=== PATIENT | female | born 1980 | race Caucasian/White ===

== ENCOUNTER 2017-10-11 08:04 | Outpatient (CLI) | payer OTHER ==
--- NOTE | 2017-10-11 11:54 | MRI ---
MRI CERVICAL SPINE: HISTORY: Hand tingling, M54.12. FINDINGS: Multiplanar, multisequence noncontrast-enhanced MRI images of the cervical spine were obtained. The spinal cord is unremarkable. No evidence of cord masses or lesions seen. C1-2, C2-3, C3-4: Unremarkable. C4-5: There is a mild disk desiccation at this level. No significant degree of central stenosis is seen. The neural foramen are patent. C5-6: Unremarkable. C6-7 and C7-T1: Unremarkable. IMPRESSION: Minimal C4-5 disk desiccation. No significant degree of central or neural foraminal narrowing is see n. POS: OFF
== END 2017-10-11 08:05 | disposition home or self-care (01) ==
LOC: BICMRI 08:04
PROVIDERS: ATTEND Internal Medicine
DX: M50.10 Cervical disc disorder with radiculopathy, unspecified cervical region (principal)
CPT/HCPCS: 72141

== ENCOUNTER 2018-02-13 07:38 | Outpatient (CLI) | payer SELFPAY, OTHER ==
--- NOTE | 2018-02-13 09:33 | MRI ---
MRI LUMBAR SPINE WITHOUT COTNRAST: Multiplanar, multisequential imaging of the lumbar spine obtained. INDICATION: Lumbar radiculopathy. Chronic back pain. COMPARISON: No comparison study. FINDINGS: Lumbar vertebrae maintain normal height and alignment. Disk spaces are maintained. At L1-2, no disk bulge or protrusion. No central canal or foraminal stenosis. At L2-3, no significant disk bulge. Mild facet arthrosis. No central canal or foraminal stenosis. At L3-4, mild disk bulge abuts and mildly flattens the anterior thecal sac. Mild facet arthrosis. N o significant central canal or foraminal stenosis. At L4-5, there is evidence of an annular fissure. There is a small central disk protrusion which ind ents the anterior thecal sac. Mild facet arthrosis and hypertrophy. Mild central canal stenosis. At L5-S1, mild diffuse bulge centrally. This abuts the anterior thecal sac. Mild facet arthrosis. No central canal or foraminal stenosis. IMPRESSION: 1. Small central disk protrusion at L4-5 as described above. 2. Mild diffuse disk bulge at L5-S1 as described. POS: OFF
--- NOTE | 2018-02-13 09:49 | RAD ---
LEFT HIP 2 VIEWS: Date: 02/13/18 HISTORY: Left hip pain. FINDINGS/IMPRESSION: No fracture, dislocation, or bony destruction is seen. POS: [facility]
--- NOTE | 2018-02-13 09:50 | RAD ---
RIGHT HIP 2 VIEWS: Date: 02/13/18 HISTORY: Right hip pain. FINDINGS/IMPRESSION: No fracture, dislocation, or bony destruction is identified. POS: JAMES
== END 2018-02-13 07:39 | disposition home or self-care (01) ==
LOC: MRI 07:38
PROVIDERS: ATTEND Internal Medicine
DX: M51.16 Intervertebral disc disorders with radiculopathy, lumbar region (principal); M25.552 Pain in left hip
CPT/HCPCS: 72148

== ENCOUNTER 2018-02-17 06:41 | Outpatient (CLI) | payer OTHER | END 2018-02-17 06:42 | disposition home or self-care (01) | LOC: BICULT 06:41 | PROVIDERS: ATTEND Family Medicine | DX: R22.31 Localized swelling, mass and lump, right upper limb (principal); M89.9 Disorder of bone, unspecified | CPT/HCPCS: 76999 ==

== ENCOUNTER 2018-04-22 07:03 | Emergency (ER) | payer OTHER ==
[2018-04-22 07:26] LABS: #Basophils 0.1 thou/uL (0.0-0.2); #Eosinphils 0.3 thou/uL (0.0-0.7); #Lymphocytes 4.1 thou/uL (1.20-3.40); #Monocytes 0.8 thou/uL (0.11-0.59); %Basophils 0.6 % (0.0-1.0); %Eosinophils 2.2 % (0.0-10.0); %Lymphocytes 31.1 % (21.0-51.0); %Neutrophils 60.1 % (42.0-75.0); Hemoglobin 15.9 g/dL (12.0-16.0); Mean Corpuscular HGB CONC 33.1 g/dL (32.0-36.0); Mean Corpuscular Hemoglobin 31.6 pg (27.0-31.0); Mean Corpuscular Volume 95.6 fl (81.0-99.0); Mean Platelet Volume 7.7 fL (7.4-10.4); Platelet Count 211 thou/uL (130-400); Red Blood Cell (RBC) Count 5.04 mill/uL (4.20-5.40); White Blood Cell (WBC) Count 13.3 thou/uL (4.8-10.8)
[2018-04-22 07:51] LABS: ALT (SGPT) 20 U/L (8-55); AST (SGOT) 11 U/L (5-34); Albumin 3.9 g/dL (3.5-5.0); Alkaline Phosphatase 83 U/L (40-150); Anion Gap 13 mmol/L (10-20); BUN (Urea Nitrogen) 16 mg/dL (7.0-18.7); Bilirubin, Total 0.3 mg/dL (0.2-1.2); Calc. Creatinine Clearance 0 mL/min (70-130); Calcium 9.3 mg/dL (7.8-10.44); Carbon Dioxide 24 mmol/L (22-29); Chloride 104 mmol/L (98-107); Estimated GFR-MDRD 89; Glucose 98 mg/dL (70-105); Potassium 4.3 mmol/L (3.5-5.1); Protein, Total 6.9 g/dL (6.0-8.3); Sodium 137 mmol/L (136-145)
[2018-04-22 07:54] LABS: Troponin I Less than 0.010 ng/mL (< 0.028)
--- NOTE | 2018-04-22 09:02 | RAD ---
AP VIEW OF THE CHEST: INDICATION: Chest pain. COMPARISON: Prior exam dated 10/16/16. FINDINGS: No consolidation, pleural effusion, or pneumothorax is evident. Trachea is midline. Heart size is n ormal appearing. No acute osseous abnormality is demonstrated. IMPRESSION: No acute cardiopulmonary abnormality. POS: [facility]
[2018-04-22] MEDS ORDERED: Nitroglycerin 0.4 MG TAB (25 Tab Bottle) ONE (09:15)
[2018-04-22 11:17] LABS: Troponin I Less than 0.010 ng/mL (< 0.028)
== END 2018-04-22 11:34 | disposition home or self-care (01) ==
LOC: ERS 07:03
DX: R07.2 Precordial pain (principal); E66.9 Obesity, unspecified; M41.9 Scoliosis, unspecified; F41.9 Anxiety disorder, unspecified; F32.9 Major depressive disorder, single episode, unspecified; F17.210 Nicotine dependence, cigarettes, uncomplicated; Z79.899 Other long term (current) drug therapy
CPT/HCPCS: 36415; 71045; 80053; 82553; 83690; 83880; 84484; 85025; 85379; 93005; 96360

== ENCOUNTER 2018-06-09 10:48 | Outpatient (CLI) | payer OTHER | END 2018-06-09 10:49 | disposition home or self-care (01) | LOC: DTY/OP 10:48 | PROVIDERS: ATTEND Specialist | DX: Z01.818 Encounter for other preprocedural examination (principal); E66.01 Morbid (severe) obesity due to excess calories | CPT/HCPCS: 97802 ==

== ENCOUNTER 2018-07-11 13:00 | Inpatient (IN) | payer OTHER ==
--- NOTE | 2018-07-12 13:42 | ADD-HP ---
ADDENDUM HISTORY OF PRESENT ILLNESS: Tena Barry is being evaluated for laparoscopic sleeve gastrectomy. S cammie is morbidly obese. Starting weight 294 pounds, 53 BMI; losing to 281, 51 BMI, but then today in t he office to 294 of 53 BMI. She was planned next week for laparoscopic sleeve gastrectomy. She is s een by psychologist felt to be a good candidate. She has attended our bariatric weight loss seminar. She is committed to long-term followup and postoperative support groups to ensure maximal success. Comorbidities include elevated cholesterol, lipids, obesity, arthralgias, back pain, depression. PAST MEDICAL HISTORY: Scoliosis, menometrorrhagia, dysmenorrhea, normal endometrial biopsy, status p ost hysterectomy, bilateral salpingectomy Dr. Ellis Metcalf, , left clubfoot repair. Scolios is, chronic lumbar pain, anxiety, obesity, elevated cholesterol and triglycerides, lower back pain. TOBACCO: None. ALCOHOL: Rarely. ALLERGIES: CECLOR, hives allergy. FAMILY HISTORY: Noncontributory. REVIEW OF SYSTEMS: Ten-point noncontributory. PHYSICAL EXAMINATION: VITAL SIGNS: 5 feet 2 inches, 294 pounds, 53 BMI. HEAD, EYES, EARS, NOSE, AND THROAT: Unremarkable. LUNGS: Clear to auscultation. CARDIAC: Regular rate and rhythm without murmur or gallop. ABDOMEN: Soft, obese, nontender. EXTREMITIES: Unremarkable. No ankle edema, palpable pedal pulses. No lymphadenopathy in neck, axil la or groins. NEUROLOGICAL: Cranial nerves intact. No neurological deficits. ASSESSMENT: Morbid obesity, 294 pounds, 53 BMI. PLAN: Laparoscopic sleeve gastrectomy. Risk of infection, bleeding, reoperation etc, are discussed. Questions answered.
[2018-07-16] MEDS ORDERED: Levofloxacin 500 mg/D5W 100 ml Premix Bag ONE (06:17)
[2018-07-16] MEDS ORDERED: Scopolamine 1.5 mg/72 hour Patch ONE (06:18)
[2018-07-16] MEDS ORDERED: Ketorolac Tromethamine 30 MG/ML VIAL ONE (06:18)
[2018-07-16] MEDS ORDERED: Heparin 5,000 UNITS/ML VIAL ONE (06:18)
[2018-07-16] MEDS ORDERED: Bupivacaine/Epinephrine 0.25% 30 ML VIAL ONE (06:55)
[2018-07-16] MEDS ORDERED: Fentanyl 100 MCG/2 ML VIAL ONE ×3 (07:02→10:46)
[2018-07-16] MEDS ORDERED: Dexmedetomidine 200 MCG/2 ML VIAL ONE (07:03)
[2018-07-16] MEDS ORDERED: Midazolam HCl 2 mg/2 ml Vial ONE (07:17)
[2018-07-16] MEDS ORDERED: SUGAMMADEX SODIUM 500 MG/5 ML VIAL ONE (08:04)
[2018-07-16] MEDS ORDERED: Promethazine HCl 25 MG/ML VIAL IM PRN (09:10)
[2018-07-16] MEDS ORDERED: Promethazine HCl 25 MG/ML VIAL SLOW IVP PRN (09:10)
[2018-07-16] MEDS ORDERED: Ondansetron HCl/PF 4 MG/2 ML Vial IVP PRN (09:10)
[2018-07-16] MEDS ORDERED: diphenhydrAMINE 50 MG/ML VIAL IVP PRN (09:39)
[2018-07-16] MEDS ORDERED: hydrALAZINE 20 MG/ML VIAL SLOW IVP PRN (09:39)
[2018-07-16] MEDS ORDERED: Acetaminophen 650 MG/20.3 ML UDCUP PO PRN (09:39)
[2018-07-16] MEDS ORDERED: Ondansetron ORAL SOLN. 4 MG/5 ML UDCUP PO PRN ×2 (09:43)
[2018-07-16] MEDS ORDERED: Ondansetron ODT 8 MG TAB SL PRN (09:43)
[2018-07-16] MEDS ORDERED: Ondansetron ODT 8 MG TAB PO PRN (09:43)
[2018-07-16] MEDS: Ketorolac Tromethamine 30 MG/ML VIAL IVP SCH ×2 (12:01→17:24)
[2018-07-16] MEDS: Morphine 4 MG/ML VIAL SLOW IVP PRN ×4 (12:01→18:47)
[2018-07-16] MEDS: Acetaminophen 1,000 MG in Premix Bag 1 BAG IVPB SCH ×2 (12:02→17:24)
[2018-07-16 13:39] VITALS: BMI 54.1
--- NOTE | 2018-07-16 13:47 | OP ---
DATE OF PROCEDURE: 07/16/2018 PREOPERATIVE DIAGNOSES: 1. Morbid obesity. 2. Elevated cholesterol. 3. Arthralgias. 4. Depression. 5. 53 BMI. SURGEON: Dr. Pastor Ramirez ANESTHESIA: General. Local 0.25% Marcaine with epinephrine, 60 mL. FINDINGS: Fatty liver, though not too severe, was malleable to allow the procedure. Difficult proc edure due to morbid obesity, 53 BMI. PROCEDURE: The patient was taken to the operating room where under general anesthesia in supine posi tion, abdomen was prepped with ChloraPrep, draped in routine fashion. Local anesthetic infiltrated i nto the skin and subcutaneous tissue about all port sites. Supraumbilical midline incision made. Pn eumoperitoneum to 15 mm obtained with the Veress needle, replacing it with a 5 port, video laparoscop e inserted. Bilateral far laterals subcostal incision made and 5 ports placed. Bilateral midclavicu lar upper abdominal incision made and a 15 mm port placed on the left and a 12 mm port placed on the right. Subxiphoid incision made and a Kranthi liver retractor placed under laparoscopic visualizat ion retracting the left lobe of the liver. Gastrocolic ligament taken down adjacent to greater curva ture of the stomach beginning distally, dissection carried up towards the angle of His. Angle of His dissected free. Posterior attachments taken down. Dissection carried out distally to within 4 cm o f the pylorus. A 36 Greenlandic bougie placed per Anesthesia and laparoscopically appreciated and directe d towards the pylorus. Sleeve gastrectomy undertaken with a green load, gold load and blue load fire s of the stapler, taking care to not encroach on the incisura. This was carried up completely dividi ng the stomach, completing the sleeve gastrectomy, removing the stomach through the 15 mm port and cl osing this defect with a 0 Vicryl GraNee needle. Endoscopy performed, placed the endoscope per os un sharad direct visualization down the esophagus throughout the stomach through the pylorus and the duoden um. Scope passed easily. There were no restrictions. Scope withdrawn noting good hemostasis. The esophagus looked normal. No other abnormalities noted. The staple line on the sleeve gastrectomy ag ain inspected and clips placed where necessary. There was good hemostasis. Spleen was not injured. As sponge and needle counts were correct and the specimen removed, all instruments removed and all s kin incisions irrigated and approximated with continuous subcuticular suture of 4-0 Monocryl and Derm aGlue applied.
[2018-07-16] MEDS: 1/2 NS w/KCL 20 mEq 1,000 ML IV SCH ×2 (14:55→23:20)
[2018-07-16] MEDS: Ondansetron HCl/PF 4 MG/2 ML Vial IVP PRN (17:24)
[2018-07-16] MEDS ORDERED: traZODone HCl 50 MG TAB PO SCH (21:00)
[2018-07-16] MEDS ORDERED: Enoxaparin Sodium 40 MG/0.4 ML SYRINGE SC SCH (21:00)
[2018-07-17] MEDS: Ketorolac Tromethamine 30 MG/ML VIAL IVP SCH ×3 (00:42→11:39)
[2018-07-17] MEDS: Acetaminophen 1,000 MG in Premix Bag 1 BAG IVPB SCH ×2 (00:42→05:53)
[2018-07-17] MEDS: Morphine 4 MG/ML VIAL SLOW IVP PRN ×3 (00:46→08:25)
[2018-07-17] MEDS: 1/2 NS w/KCL 20 mEq 1,000 ML IV SCH ×2 (02:38→10:49)
[2018-07-17 05:03] LABS: #Lymphocytes 2.2 thou/uL (1.20-3.40); #Monocytes 0.3 thou/uL (0.11-0.59); #Neutrophils 5.8 thou/uL (1.40-6.50); %Basophils 0.4 % (0.0-1.0); %Eosinophils 0.5 % (0.0-10.0); %Lymphocytes 25.9 % (21.0-51.0); %Neutrophils 69.2 % (42.0-75.0); Hemoglobin 12.7 g/dL (12.0-16.0); Mean Corpuscular HGB CONC 34.9 g/dL (32.0-36.0); Mean Corpuscular Hemoglobin 33.6 pg (27.0-31.0); Mean Corpuscular Volume 96.3 fL (78.0-98.0); Mean Platelet Volume 8.8 fL (7.4-10.4); Platelet Count 178 thou/uL (130-400); RBC Distribution Width 12.1 % (11.5-14.5); Red Blood Cell (RBC) Count 3.79 mill/uL (4.20-5.40); White Blood Cell (WBC) Count 8.4 thou/uL (4.8-10.8)
[2018-07-17 05:25] LABS: Anion Gap 12 mmol/L (10-20); BUN (Urea Nitrogen) 6 mg/dL (7.0-18.7); Calc. Creatinine Clearance 237 mL/min (70-130); Calcium 8.3 mg/dL (7.8-10.44); Carbon Dioxide 23 mmol/L (22-29); Chloride 108 mmol/L (98-107); Estimated GFR-MDRD Greater than 90; Glucose 100 mg/dL (70-105); Potassium 3.7 mmol/L (3.5-5.1); Sodium 139 mmol/L (136-145)
[2018-07-17] MEDS: Ondansetron HCl/PF 4 MG/2 ML Vial IVP PRN (07:39)
[2018-07-17] MEDS ORDERED: Diazepam 5 MG TAB PO SCH (09:00)
[2018-07-17] MEDS ORDERED: Pantoprazole 40 MG VIAL IVP SCH (09:00)
[2018-07-17 11:38] VITALS: BP 121/73; TEMP 98.1
[2018-07-17] MEDS ORDERED: Hydrocodone-Acetamin 15 ML UDCUP PO PRN (12:00)
--- NOTE | 2018-07-18 00:55 | PRG ---
DATE OF SERVICE: 07/17/2018 SUBJECTIVE: Ms. Barry is doing well today. Her CBC and basic metabolic profile are normal. OBJECTIVE: VITAL SIGNS: Stable. Heart rate is normal. Respiratory rate is normal. LUNGS: Clear to auscultation. CARDIAC: Regular rate and rhythm without murmur or gallop. ABDOMEN: Soft. Surgical wounds look good. ASSESSMENT AND PLAN: The patient has complained expected postoperative pain around the trocar sites. Overall, she is doing well. Plan is discharge home with adherence to the postoperative laparoscopi c sleeve gastrectomy. Diet advancement. Lortab 7.5/325 Elixir for pain as needed . Follow up in my office in 1-2 weeks per appointment. Resume home medications.
--- NOTE | 2018-07-18 03:31 | DIS ---
DATE OF ADMISSION: 07/16/2018 DATE OF DISCHARGE: 07/17/2018 DISCHARGE DIAGNOSIS: Morbid obesity. PROCEDURES THIS HOSPITALIZATION: Laparoscopic sleeve gastrectomy, 36 Turkish bougie, staple line with in 4 cm of the pylorus, completion upper endoscopy. HISTORY OF PRESENT ILLNESS: A 38-year-old female, morbidly obese, has attended our bariatric seminar , seen her dietitian, psychologist felt to be a good candidate for bariatric surgery, undergoing the operation as described. Postoperatively, doing well and discharged home to resume her home medicatio ns as well as Lortab Elixir 7.5/325 as needed for pain, given 15 mL q.i.d. p.r.n. pain. Follow up in my office in 1-2 weeks. Encourage activity, ambulation, adherence to dietary advancement per bariat margret sleeve gastrectomy protocol, bariatric liquids for 2 weeks, pureed diet and then soft diet. Follow up in my office in one week.
== END 2018-07-17 13:08 | disposition home or self-care (01) | DRG 621 ==
LOC: SURG A 07-16 05:50
PROVIDERS: ADMIT Specialist; ATTEND Specialist
PROC: 0DB64Z3 Excision of Stomach, Percutaneous Endoscopic Approach, Vertical (ICD-10-PCS; principal; 2018-07-16)
PROC: 0DJ08ZZ Inspection of Upper Intestinal Tract, Via Natural or Artificial Opening Endoscopic (ICD-10-PCS; 2018-07-16)
DX: E66.01 Morbid (severe) obesity due to excess calories (principal); Z68.43 Body mass index [BMI] 50.0-59.9, adult; M25.50 Pain in unspecified joint; F32.9 Major depressive disorder, single episode, unspecified; M41.9 Scoliosis, unspecified; N92.1 Excessive and frequent menstruation with irregular cycle; Z90.710 Acquired absence of both cervix and uterus; F41.9 Anxiety disorder, unspecified; E78.2 Mixed hyperlipidemia; K76.0 Fatty (change of) liver, not elsewhere classified
CPT/HCPCS: 36415; 80048; 85025; 88307; 88312; C9113; J0131; J1644; J1650; J1885; J1956; J2250; J2270; J2405; J3010

== ENCOUNTER 2018-07-18 09:52 | Outpatient (CLI) | payer OTHER ==
--- NOTE | 2018-07-18 14:07 | CT ---
CT ABDOMEN AND PELVIS WITH CONTRAST: HISTORY: Status post recent gastric sleeve procedure with nausea, severe abdominal pain, and fever. COMPARISON: None. TECHNIQUE: Multiple contiguous axial images were obtained in a CT of the abdomen and pelvis with contrast. Cont rast was administered p.o. Coronal reformats were performed. FINDINGS: There is free air in the abdomen from recent surgery. Post surgical changes are seen in the stomach from previous gastric sleeve procedure. There is diffuse fatty infiltration of the liver. The gallb ladder, kidneys, adrenal glands, spleen, and pancreas are unremarkable. No free fluid is seen in the abdomen or pelvis. The large and small bowel are unremarkable. The pat ient is status post hysterectomy. No abdominal or pelvic lymphadenopathy is seen. The osseous structures and abdominal wall soft tissues are unremarkable. Atelectasis is seen in the lung bases. IMPRESSION: 1. Expected post surgical changes, status post gastric sleeve procedure. 2. Fatty liver. 3. Bibasilar atelectasis. POS: [facility]
[2018-07-18] MEDS ORDERED: Iopamidol 370 76% 100 ML VIAL ONE (14:17)
== END 2018-07-18 09:53 | disposition home or self-care (01) ==
LOC: CT 09:52
PROVIDERS: ATTEND Specialist
DX: Z48.815 Encounter for surgical aftercare following surgery on the digestive system (principal); K76.0 Fatty (change of) liver, not elsewhere classified; J98.11 Atelectasis; Z98.84 Bariatric surgery status
CPT/HCPCS: 36415; 74177; 80048; 85025

== ENCOUNTER 2018-08-18 07:38 | Emergency (ER) | payer OTHER ==
[2018-08-18 08:36] LABS: Hemoglobin 15.9 g/dL (12.0-16.0); Mean Corpuscular HGB CONC 33.6 g/dL (32.0-36.0); Mean Corpuscular Hemoglobin 31.4 pg (27.0-31.0); Mean Corpuscular Volume 93.6 fL (78.0-98.0); Mean Platelet Volume 10.2 fL (7.4-10.4); Platelet Count 169 thou/uL (130-400); RBC Distribution Width 11.9 % (11.5-14.5); Red Blood Cell (RBC) Count 5.04 mill/uL (4.20-5.40); White Blood Cell (WBC) Count 6.9 thou/uL (4.8-10.8)
[2018-08-18 08:42] LABS: ALT (SGPT) 69 U/L (8-55); AST (SGOT) 49 U/L (5-34); Albumin 4.3 g/dL (3.5-5.0); Alkaline Phosphatase 77 U/L (40-150); Anion Gap 14 mmol/L (10-20); BUN (Urea Nitrogen) 8 mg/dL (7.0-18.7); Bilirubin, Total 0.5 mg/dL (0.2-1.2); Calc. Creatinine Clearance 0 mL/min (70-130); Calcium 9.5 mg/dL (7.8-10.44); Carbon Dioxide 27 mmol/L (22-29); Chloride 103 mmol/L (98-107); Estimated GFR-MDRD 85; Glucose 102 mg/dL (70-105); Lipase 18 U/L (8-78); Potassium 3.7 mmol/L (3.5-5.1); Protein, Total 7.3 g/dL (6.0-8.3); Sodium 140 mmol/L (136-145)
[2018-08-18 08:53] LABS: BHCG - Serum Negative (NEGATIVE); Pregs Control Background? CLEAR/WHITE (CLR/WHITE); Pregs Control Bar Appear? YES (CONTROL BAR)
[2018-08-18] MEDS ORDERED: Ondansetron HCl/PF 4 MG/2 ML Vial ONE (09:02)
[2018-08-18] MEDS ORDERED: Morphine 4 MG/ML VIAL ONE (09:02)
[2018-08-18 09:09] LABS: Eosinophils 1 % (0-10); Lymphocytes 38 % (21-51); MDiff Complete? YES; Monocytes 5 % (0-10); Neutrophil 56 % (42-75); RBC Morphology Normal
--- NOTE | 2018-08-18 09:16 | CT ---
CT ABDOMEN AND PELVIS WITH CONTRAST: Date: 08/18/18 HISTORY: Abdominal pain. Pain after gastric sleeve surgery. COMPARISON: CT abdomen and pelvis dated 07/18/18. FINDINGS: Lung bases are clear. No pericardial effusion. There is some scarring along the greater curvature of the stomach. There is evidence of recent surger y without complication. Diffuse hepatic steatosis. Spleen is unremarkable. Pancreas is unremarkable. Kidneys are unremarkable . No hydronephrosis. There is moderate diverticular disease of the sigmoid colon without active current inflammation. The appendix is visualized and is normal. The aortoiliac contour is nonaneurysmal. Skeleton is unremarkable. No retroperitoneal adenopathy. Fat-containing umbilical hernia. IMPRESSION: 1. Uncomplicated fat-containing umbilical hernia. 2. Moderate diverticular disease of sigmoid colon without active current inflammation. 3. Normal appearance of the appendix. POS: [facility]
[2018-08-18] MEDS ORDERED: Iopamidol 370 76% 50 ML VIAL FS ONE (10:09)
[2018-08-18] MEDS ORDERED: ISOVUE-370 76%-LOCM 1 ML ONE (10:09)
--- NOTE | 2018-08-20 14:10 | EKG ---
Test Reason : Blood Pressure : / mmHG Vent. Rate : 068 BPM Atrial Rate : 068 BPM P-R Int : 158 ms QRS Dur : 094 ms QT Int : 392 ms P-R-T Axes : 034 007 002 degrees QTc Int : 416 ms Normal sinus rhythm Cannot rule out Anterior infarct , age undetermined Abnormal ECG Confirmed by ZHANG RUDOLPH DO ([id number]), commercial production editor ZENAIDA GARCÍA ([id number]) on 08/20/2018 2:10:25 PM Referred By: Confirmed By:ZHANG RUDOLPH DO
== END 2018-08-18 09:39 | disposition home or self-care (01) ==
LOC: ERS 07:38
DX: R10.12 Left upper quadrant pain (principal); F41.9 Anxiety disorder, unspecified; F32.9 Major depressive disorder, single episode, unspecified; E66.9 Obesity, unspecified
CPT/HCPCS: 74177; 80053; 83690; 84703; 85025; 93005; 96361; 96374; 96375; J2270; J2405

== ENCOUNTER 2018-08-29 07:25 | Outpatient (CLI) | payer OTHER ==
--- NOTE | 2018-08-29 10:11 | ULT ---
ULTRASOUND GALLBLADDER RIGHT UPPER QUADRANT: Date: 08/29/18 HISTORY: Right upper quadrant pain. COMPARISON: CT abdomen and pelvis dated 08/18/18. FINDINGS: Real-time Qureshi scale and color evaluation of the abdomen was performed. Visualized portions of the ao rta, IVC, and pancreas are unremarkable. Diffuse increased hepatic echotexture. Common bile duct is normal measuring 4.0 mm. Portal vein is patent with antegrade flow. Gallbladder i s normal. Liver measures 15.8 cm in length. Right kidney measures 12.0 x 4.7 x 5.9 cm. Possible punctate calculus inferior right renal collecting system. IMPRESSION: 1. Possible calculus inferior right renal collecting system, although this was not seen on the recen t CT examination and may reflect debris within the enedina. 2. Diffuse hepatic steatosis. 3. No gallbladder pathology. POS: OFF
== END 2018-08-29 07:26 | disposition home or self-care (01) ==
LOC: ULT 07:25
PROVIDERS: ATTEND Specialist
DX: R10.11 Right upper quadrant pain (principal); K76.0 Fatty (change of) liver, not elsewhere classified
CPT/HCPCS: 76705

== ENCOUNTER 2018-09-09 17:55 | Observation (INO) | payer OTHER ==
[2018-09-09 18:57] LABS: #Basophils 0.1 thou/uL (0.0-0.2); #Eosinphils 0.1 thou/uL (0.0-0.7); #Monocytes 0.4 thou/uL (0.11-0.59); #Neutrophils 4.2 thou/uL (1.40-6.50); %Eosinophils 1.9 % (0.0-10.0); %Monocytes 5.3 % (0.0-10.0); %Neutrophils 53.9 % (42.0-75.0); Hemoglobin 16.2 g/dL (12.0-16.0); Mean Corpuscular HGB CONC 33.8 g/dL (32.0-36.0); Mean Corpuscular Hemoglobin 31.7 pg (27.0-31.0); Mean Corpuscular Volume 93.8 fL (78.0-98.0); Mean Platelet Volume 10.2 fL (7.4-10.4); Platelet Count 175 thou/uL (130-400); RBC Distribution Width 12.3 % (11.5-14.5); White Blood Cell (WBC) Count 7.9 thou/uL (4.8-10.8)
[2018-09-09 19:22] LABS: ALT (SGPT) 60 U/L (8-55); AST (SGOT) 35 U/L (5-34); Albumin 4.6 g/dL (3.5-5.0); Alkaline Phosphatase 89 U/L (40-150); Anion Gap 16 mmol/L (10-20); BUN (Urea Nitrogen) 9 mg/dL (7.0-18.7); Bilirubin, Total 0.5 mg/dL (0.2-1.2); CK (CPK) 98 U/L (29-168); Calc. Creatinine Clearance 0 mL/min (70-130); Calcium 10.2 mg/dL (7.8-10.44); Carbon Dioxide 24 mmol/L (22-29); Chloride 104 mmol/L (98-107); Estimated GFR-MDRD 84; Globulin 3.3 g/dL (2.4-3.5); Glucose 85 mg/dL (70-105); Potassium 3.6 mmol/L (3.5-5.1); Protein, Total 7.9 g/dL (6.0-8.3); Sodium 140 mmol/L (136-145)
[2018-09-09 19:26] LABS: CKMB 0.8 ng/mL (0-6.6); Troponin I Less than 0.010 ng/mL (< 0.028)
[2018-09-09] MEDS ORDERED: Morphine 4 MG/ML VIAL ONE (19:27)
[2018-09-09] MEDS ORDERED: Ondansetron PF 4 MG/2 ML Vial ONE (19:28)
--- NOTE | 2018-09-09 19:49 | RAD ---
CHEST TWO VIEWS: 09/09/18 INDICATION: History of gastric sleeve procedure with chest pain. COMPARISON: Prior exam dated 04/22/18. FINDINGS: The lungs are clear. The cardiomediastinal silhouette is within normal limits. No acute osseous abnor mality is evident. Surgical clips are seen within the upper abdomen. IMPRESSION: No acute cardiopulmonary abnormality. POS: MARY
[2018-09-09 22:08] LABS: Troponin I Less than 0.010 ng/mL (< 0.028)
[2018-09-09 23:06] VITALS: BMI 48.5
[2018-09-09] MEDS ORDERED: Ondansetron PF 4 MG/2 ML Vial IVP PRN (23:17)
[2018-09-09] MEDS ORDERED: Ondansetron ODT 4 MG TAB PO PRN (23:17)
[2018-09-09 23:57] LABS: Cardiac Risk 5.2 (Less than 4.5)
[2018-09-10 01:07] LABS: Troponin I Less than 0.010 ng/mL (< 0.028)
[2018-09-10] MEDS ORDERED: Morphine 2 MG/ML SYRINGE SLOW IVP SCH (02:15)
[2018-09-10 05:57] LABS: #Basophils 0.1 thou/uL (0.0-0.2); #Eosinphils 0.2 thou/uL (0.0-0.7); #Lymphocytes 2.6 thou/uL (1.20-3.40); #Monocytes 0.4 thou/uL (0.11-0.59); #Neutrophils 2.8 thou/uL (1.40-6.50); %Basophils 1.1 % (0.0-1.0); %Lymphocytes 43.8 % (21.0-51.0); %Neutrophils 46.1 % (42.0-75.0); Hemoglobin 13.4 g/dL (12.0-16.0); Mean Corpuscular HGB CONC 33.6 g/dL (32.0-36.0); Mean Corpuscular Hemoglobin 31.5 pg (27.0-31.0); Mean Corpuscular Volume 93.8 fL (78.0-98.0); Mean Platelet Volume 10.3 fL (7.4-10.4); Platelet Count 148 thou/uL (130-400); RBC Distribution Width 12.3 % (11.5-14.5); Red Blood Cell (RBC) Count 4.27 mill/uL (4.20-5.40)
[2018-09-10] MEDS: Nitroglycerin 2% Ointment 1 INCH/1 GM Packet TOP SCH ×3 (06:01→21:39)
[2018-09-10] MEDS: Morphine 2 MG/ML SYRINGE SLOW IVP PRN ×3 (06:05→19:05)
[2018-09-10 06:16] LABS: Anion Gap 11 mmol/L (10-20); BUN (Urea Nitrogen) 7 mg/dL (7.0-18.7); Calc. Creatinine Clearance 214 mL/min (70-130); Calcium 8.7 mg/dL (7.8-10.44); Carbon Dioxide 24 mmol/L (22-29); Chloride 108 mmol/L (98-107); Estimated GFR-MDRD Greater than 90; Glucose 79 mg/dL (70-105); Potassium 3.5 mmol/L (3.5-5.1); Sodium 139 mmol/L (136-145)
--- NOTE | 2018-09-10 09:15 | HP ---
CHIEF COMPLAINT: Chest pain. HISTORY OF PRESENT ILLNESS: This is a 38-year-old female with past medical history of obesity, statu s post gastric band and scoliosis, presenting with chest pain. Per the patient, her chest pain start ed on Saturday morning prior to the date of admission. This chest pain is constant, 8/10, and radiates to the left side of her chest. The patient states that the chest pain is intermittent with associat ed symptoms of shortness of breath. Of note, the patient had a gastric sleeve surgery performed 2 mo nths ago by Dr. Ramirez and the patient states that everything had been okay since the surgery. The p atient denies fever, abdominal pain, back pain, dysuria, hematuria, hematochezia, but the patient adm its to diarrhea and chest pain, nausea, palpitations, vomiting. REVIEW OF SYSTEMS: Positive for diarrhea, chest pain, shortness of breath, vomiting, nausea, otherwi se as documented in HPI. All other systems were reviewed and are negative. PAST MEDICAL HISTORY: Obesity, scoliosis. FAMILY HISTORY: Reviewed and noncontributory to this visit. PAST SURGICAL HISTORY: Hysterectomy, , left foot repair, gastric sleeve on 07/16/2018. PSYCHIATRIC HISTORY: Anxiety, depression. SOCIAL HISTORY: Denies any drug use. The patient lives at home with family. The patient denies any alcohol use. The patient does not smoke. ALLERGIES: CECLOR. CURRENT MEDICATIONS: Hydrochlorothiazide 12.5 mg. PHYSICAL EXAMINATION: VITAL SIGNS: Blood pressure 141/82, pulse of 67, respiratory rate of 19, temperature of 98.5, O2 sat uration of 100 on room air. GENERAL: The patient is alert, oriented x3, not in acute distress. The patient is lying comfortably in bed, does not have any pain at this time. HEENT: Normocephalic, atraumatic. Pupils are equal, round, and react to light. Extraocular movemen ts are intact. No sclerae icterus. No conjunctival pallor. No nystagmus. Mucous membranes are betsy st. NECK: Trachea is midline. No JVD. Full range of motion, supple. LUNGS: Clear to auscultation bilateral. No wheezing, no rales, no rhonchi is appreciated. CARDIOVASCULAR: S1, S2, regular rate and rhythm, no murmurs, no gallops or rubs appreciated. ABDOMEN: Obese, soft, nontender, nondistended, positive bowel sounds in all quadrants. EXTREMITIES: The patient has 5/5 upper extremity strength, 5/5 lower extremity strength with good pu lses bilaterally in the upper and lower extremities. NEUROLOGIC: Cranial nerves II-XII grossly intact. No neurologic deficits noted. SKIN: Warm, dry, and intact. PSYCHIATRIC: Normal affect. Alert and oriented x3. EKG: The patient does have sinus rhythm with a rate of 67 with premature ventricular complexes. Chest x-ray is negative. ED COURSE: The patient received aspirin, morphine, Zofran and normal saline. LABORATORY DATA: WBC 7.9, hemoglobin 16.2, hematocrit is 47.9, platelet count is 175. Electrolytes: Sodium 140, potassium 3.6, chloride is 104, carbon dioxide of 24, BUN is 9, creatinine 0.78, AST 35 , ALT 60, triglycerides 176. Troponin is less than 0.010 x3. Lipase is 17. ASSESSMENT AND PLAN: 1. This is a 38-year-old female being admitted for chest pain, rule out acute coronary syndrome. At this point, the patient's troponins have been negative x3. We will get echo. We will do a stress t est and we will follow up on these exams. 2. Transaminitis, likely due to hepatic steatosis or known alcoholic fatty liver disease. We will c ontinue to monitor the patient. 3. Obesity. We will continue to advise the patient to exercise. 4. Deep venous thrombosis and gastrointestinal prophylaxis.
[2018-09-10] MEDS: Famotidine 20 MG TAB PO SCH ×2 (09:17→21:34)
[2018-09-10] MEDS: Hydrochlorothiazide 25 MG TAB PO SCH (09:17)
[2018-09-10] MEDS: Acetaminophen 325 MG TAB PO PRN ×2 (15:11→21:37)
--- NOTE | 2018-09-10 19:40 | PRG ---
DATE OF SERVICE: 09/10/2018 SUBJECTIVE: The patient is seen and examined at the bedside. She complains about the chest pain, es pecially when she takes deep breath or if she presses her upper part of the chest in the midline. No shortness of breath. No radiation to any other parts of her body. OBJECTIVE: VITAL SIGNS: Blood pressure is 124/76, pulse is 62, temperature 97.5, respiratory rate is 17, O2 sat urations 100% on room air. GENERAL: She is obese, her BMI is 48.6. HEENT: Atraumatic, normocephalic. Eyes are PERRLA. Sclerae are nonicteric. Oral mucosa is moist. NECK: Supple. No lymphadenopathy. Thyroid is not palpable. LUNGS: Clear. Chest; on applied pressure to her sternum, she gets quite severe pain. ABDOMEN: Obese, nondistended, soft, nontender. EXTREMITIES: No clubbing, cyanosis or edema. NEUROLOGIC: She is alert and oriented x4. There is no any sensorimotor deficit present. Cranial ne rves are intact. LABORATORY DATA: Normal CBC. Normal chemistry except for chloride which is 108. Three sets of card iac enzymes within normal limits. Triglycerides 176, total cholesterol 165, LDL 98, HDL 32. Echocar diogram was done and it showed a normal LVEF, normal size. All of the left ventricle, left atrium no rmal size. Trace to mild mitral regurgitation. Tricuspid valve normal. No evidence of tricuspid re gurgitation. IMPRESSION: 1. Chest pain to rule out acute coronary syndrome. She had first part of her stress test done today . Second part is pending to be done tomorrow because of her obesity, but she had 3 sets of cardiac e nzymes which came back within normal limits and this pain has some features of musculoskeletal pain. I am planning to start her on colchicine 0.6 twice a day and finish up her stress test tomorrow sinc e it was started today. I do not think this is going to be cardiac in nature, but since it started, we will have to finish. She should be able to be discharged home tomorrow after the test if it is ne gative. For now, will use colchicine for anti-inflammatory effect of her most likely musculoskeletal chest pain.
[2018-09-10] MEDS ORDERED: traZODone HCl 50 MG TAB PO SCH (21:00)
[2018-09-10] MEDS ORDERED: Atorvastatin Calcium 40 MG TAB PO SCH (21:00)
[2018-09-10] MEDS: Colchicine 0.6 MG TAB PO SCH (21:41)
[2018-09-11] MEDS: Nitroglycerin 2% Ointment 1 INCH/1 GM Packet TOP SCH ×2 (06:19→14:12)
[2018-09-11] MEDS: Colchicine 0.6 MG TAB PO SCH (09:58)
[2018-09-11] MEDS: Famotidine 20 MG TAB PO SCH (09:58)
[2018-09-11] MEDS: Hydrochlorothiazide 25 MG TAB PO SCH (09:59)
--- NOTE | 2018-09-11 11:20 | NM ---
CARDIAC SPECT WITH EF AND WALL MOTION: History: 38-year-old female with history of chest pain. FINDINGS: Exam performed with Adenosine protocol. Patient was injected with 27.0 mCi Technetium 99M Sestamibi intravenously for stress images and 29.0 mCi Technetium 99M Sestamibi intravenously for rest images. Multiple SPECT images in the short axis, vertical long axis, and horizontal long axis demonstrates no scan evidence for infarct or ischemia. TID 1.07 LHR 0.31 EDV 97 ml EF 50% MYOCARDIAL PERFUSION WALL MOTION: No significant focal wall motion abnormality. IMPRESSION: Unremarkable stress rest Nuclear Medicine cardiac SPECT with EF and wall motion. POS: [facility]
--- NOTE | 2018-09-11 13:51 | DIS ---
DATE OF ADMISSION: 09/09/2018 DATE OF DISCHARGE: 09/11/2018 DISCHARGE DIAGNOSES: 1. Chest pain, acute coronary syndrome was ruled out. This pain looks more like musculoskeletal aggie st wall pain. 2. Morbid obesity. 3. Transaminitis, most likely secondary to hepatic steatosis because of her morbid obesity. HOSPITAL COURSE: The patient is a 38-year-old female with past medical history of obesity, status post gastric band and scoliosis, who presented with chest pain rated at 8/10, radiated to the left side of the chest. It was intermittent with associated symptoms of shortness of breath. She d enied any fever, abdominal pain, back pain, dysuria, hematuria, hematochezia. She admitted to having some diarrhea. At the time of emergency room evaluation, she was found to have a white count of 7.9 , hemoglobin 16.2, hematocrit 47.9, platelet count 475. Sodium 140, potassium 3.6, chloride 104, CO2 24. BUN 9, creatinine 0.79, AST 35, ALT 60, triglycerides 176. Troponin was less than 0.01 x3. Li pase was 17. EKG showed normal sinus rhythm with rate of 67 beats per minute with some premature ve ntricular complexes. Chest x-ray was not revealing any cardiovascular or pulmonary problems. The patient got admitted to the telemetry floor for observation. It was noticed that her AST and ALT were elevated and it was felt that this was secondary to hepatic steatosis related to her morbid obe sity. The patient underwent a stress test. Both portions of the tests were negative for any focal w all motion abnormalities. Her LVEF was estimated at 50%. Also, she was started on 0.6 mg of colchic ine twice a day which improved her chest pain. It is most likely pain related to a strained chest wa ll muscles. The patient is doing well. She also underwent echocardiogram which showed a normal LVEF at 55-60%, trace to mild mitral regurgitation. Tricuspid valve within normal limits. Left atrium n ormal size. No evidence of tricuspid regurgitation. She is discharged home in good condition. She was evaluated and examined before she is discharged. VITAL SIGNS: Her blood pressure is 101/55, pulse is 76, respiratory rate is 18, and O2 saturation is 96% on room air. HEENT: Head is atraumatic, normocephalic. Eyes are PERRLA. Sclerae nonicteric. LUNGS: Clear. HEART: S1, S2 normal. ABDOMEN: Soft, obese. NEUROLOGIC: Intact. She is going to follow up with her primary care physician in 1 week. She would take at home colchici ne 0.6 mg twice a day along with diazepam 5 mg q.a.m. and hydrochlorothiazide 25 mg every morning, tr azodone 50 mg at bedtime, atorvastatin 40 mg q.p.m. DISPOSITION: Home. DISCHARGE CONDITION: Condition is good. ACTIVITY: As tolerated. DIET: Heart healthy diet, appropriate for somebody who had gastric bypass surgery. The time spent on this discharge is less than 30 minutes.
[2018-09-11 14:03] VITALS: BP 112/76; TEMP 98.1
== END 2018-09-11 14:40 | disposition home or self-care (01) ==
LOC: ERS 17:55 → 2NO 22:17
PROVIDERS: ADMIT Internal Medicine; ATTEND Internal Medicine
DX: R07.9 Chest pain, unspecified (principal); M41.9 Scoliosis, unspecified; F41.9 Anxiety disorder, unspecified; F32.9 Major depressive disorder, single episode, unspecified; R74.0 Nonspecific elevation of levels of transaminase and lactic acid dehydrogenase [LDH]; E66.01 Morbid (severe) obesity due to excess calories; Z68.42 Body mass index [BMI] 45.0-49.9, adult; Z79.899 Other long term (current) drug therapy; Z88.1 Allergy status to other antibiotic agents; Z98.84 Bariatric surgery status
CPT/HCPCS: 36415; 71046; 78452; 80048; 80053; 80061; 82553; 83690; 84484; 85025; 93005; 93017; 93306; 94760; 96361; 96374; 96375; 96376; A9500; G0378; J0153; J2270; J2405

== ENCOUNTER 2018-11-20 15:06 | Outpatient (CLI) | payer OTHER ==
--- NOTE | 2018-11-20 16:17 | RAD ---
THREE VIEWS CERVICAL SPINE INCLUDING LATERAL, FLEXION, AND EXTENSION VIEWS: Date: 11-20-18 FINDINGS: C6-7 anterior osteophytes. This is compatible with changes of spondylosis. No evidence of acute fract ure, subluxations, or acute bony lesions seen. No evidence of asha or retrolisthesis seen. IMPRESSION: C6-7 changes of spondylosis. POS: [facility]
== END 2018-11-20 15:07 | disposition home or self-care (01) ==
LOC: RAD 15:06
PROVIDERS: ATTEND Nurse Practitioner Family
DX: M47.22 Other spondylosis with radiculopathy, cervical region (principal)
CPT/HCPCS: 72040

== ENCOUNTER 2018-12-05 09:19 | Emergency (ER) | payer OTHER ==
[2018-12-05] MEDS ORDERED: Metoclopramide HCl 10 MG/2 ML VIAL ONE (09:32)
[2018-12-05] MEDS ORDERED: Dexamethasone 10 MG/ML VIAL ONE (09:32)
[2018-12-05] MEDS ORDERED: Ketorolac Tromethamine 30 MG/ML VIAL ONE (09:32)
[2018-12-05] MEDS ORDERED: Ondansetron PF 4 MG/2 ML Vial ONE (10:09)
== END 2018-12-05 10:38 | disposition home or self-care (01) ==
LOC: SCSER 09:19
DX: G43.909 Migraine, unspecified, not intractable, without status migrainosus (principal); E66.9 Obesity, unspecified; F41.9 Anxiety disorder, unspecified; F32.9 Major depressive disorder, single episode, unspecified; Z79.899 Other long term (current) drug therapy
CPT/HCPCS: 96365; 96375; J1100; J1885; J2405; J2765

== ENCOUNTER 2019-03-01 16:16 | Emergency (ER) | payer OTHER ==
[2019-03-01] MEDS ORDERED: diphenhydrAMINE 25 MG CAP ONE (16:30)
[2019-03-01] MEDS ORDERED: predniSONE 20 MG TAB ONE (16:30)
== END 2019-03-01 16:49 | disposition home or self-care (01) ==
LOC: SCSER 16:16
DX: R21 Rash and other nonspecific skin eruption (principal); E66.9 Obesity, unspecified; F31.9 Bipolar disorder, unspecified; F43.10 Post-traumatic stress disorder, unspecified; F60.3 Borderline personality disorder; F41.9 Anxiety disorder, unspecified; Z87.891 Personal history of nicotine dependence; Z79.01 Long term (current) use of anticoagulants; Z79.899 Other long term (current) drug therapy
CPT/HCPCS: 99282; J7512; Q0163

== ENCOUNTER 2019-06-26 16:55 | Emergency (ER) | payer OTHER ==
[~2019-06-26 16:55] MED LIST: ISOVUE-370 76%-LOCM 1 ML ONE
[2019-06-26 17:47] LABS: Bilirubin Negative (Negative); Blood, Urine Negative (Negative); Clarity Clear (Clear); Glucose, Urine (Dipstick) Normal (Negative); Leukocyte Negative Leu/uL (Negative); Nitrite Negative (Negative); Protein, Urine (Dipstick) Negative (Neg-Trace); Urobilinogen Normal mg/dL (Less than 2)
[2019-06-26 17:50] LABS: Pregnancy Test - Urine (BHCG) Negative (Negative); Pregu Control Background? CLEAR/WHITE (CLR/WHITE); Pregu Control Bar Appear? YES (CONTROL BAR); Specific Gravity 1.004 (1.002-1.036)
[2019-06-26] MEDS ORDERED: Morphine 4 MG/ML VIAL ONE (17:52)
[2019-06-26] MEDS ORDERED: Ondansetron PF 4 MG/2 ML Vial ONE (17:52)
[2019-06-26 18:04] LABS: #Basophils 0.1 thou/uL (0.0-0.2); #Eosinphils 0.2 thou/uL (0.0-0.7); #Lymphocytes 3.4 thou/uL (1.20-3.40); #Monocytes 0.4 thou/uL (0.11-0.59); #Neutrophils 4.2 thou/uL (1.40-6.50); %Basophils 1.2 % (0.0-1.0); %Eosinophils 2.3 % (0.0-10.0); %Lymphocytes 40.4 % (21.0-51.0); %Monocytes 5.3 % (0.0-10.0); %Neutrophils 50.9 % (42.0-75.0); Hemoglobin 14.2 g/dL (12.0-16.0); Mean Corpuscular Hemoglobin 32.4 pg (27.0-31.0); Mean Corpuscular Volume 92.6 fL (78.0-98.0); Mean Platelet Volume 10.3 fL (7.4-10.4); Platelet Count 156 thou/uL (130-400); RBC Distribution Width 11.7 % (11.5-14.5); Red Blood Cell (RBC) Count 4.39 mill/uL (4.20-5.40); White Blood Cell (WBC) Count 8.3 thou/uL (4.8-10.8)
[2019-06-26 18:25] LABS: ALT (SGPT) 38 U/L (8-55); AST (SGOT) 18 U/L (5-34); Albumin 4.3 g/dL (3.5-5.0); Alkaline Phosphatase 88 U/L (40-150); Anion Gap 12 mmol/L (10-20); BUN (Urea Nitrogen) 11 mg/dL (7.0-18.7); Bilirubin, Total 0.3 mg/dL (0.2-1.2); Calc. Creatinine Clearance 0 mL/min (70-130); Calcium 9.6 mg/dL (7.8-10.44); Carbon Dioxide 25 mmol/L (22-29); Chloride 106 mmol/L (98-107); Estimated GFR-MDRD Greater than 90; Globulin 2.5 g/dL (2.4-3.5); Glucose 83 mg/dL (70-105); Potassium 4.2 mmol/L (3.5-5.1); Protein, Total 6.8 g/dL (6.0-8.3); Sodium 139 mmol/L (136-145)
--- NOTE | 2019-06-26 19:01 | CT ---
CT ABDOMEN AND PELVIS WITH IV CONTRAST 06/26/2019 CLINICAL INFORMATION: Left lower quadrant abdominal pain with radiation of pain to the back. COMPARISON: 08/18/2018. Technique: Multiple contiguous axial CT images are obtained through the abdomen and pelvis with IV contrast. Cor onal reformatted images are provided. FINDINGS: Lower Chest: within normal limits. Vessels: Abdominal aorta is normal in caliber without evidence of an aortic dissection. Abdomen: Portal vein:Patent Gallbladder: Within normal limits for CT imaging. Liver: within normal limits. Spleen: within normal limits. Pancreas: within normal limits. Adrenals: within normal limits. Kidneys: within normal limits. Bowel: Postsurgical changes involving the stomach are noted. Appendix: Not visualized, but there are no secondary signs to suggest appendicitis Peritoneum: No ascites or free air; no fluid collection. Mesentery and Retroperitoneum: No enlarged mesenteric or retroperitoneal lymph nodes. Abdominal Wall: Again noted is a small left periumbilical fat-containing hernia. Pelvis: Reproductive Organs: There is evidence of hysterectomy. There is prominence in the region of the vagi nal cuff, and this does appear slightly more prominent than on the prior exam. This is of uncertain etiology. Pelvis within normal limits. Bladder: Incompletely distended. Bones: Mild degenerative changes seen in the lower thoracic spine. IMPRESSION: 1. Post surgical changes related to hysterectomy. There is nonspecific mild prominence in the region of the vaginal cuff. A discrete mass is not appreciated in this region. This region does appear slightly more prominent than on the prior exam. This is may be within normal limits, but direct visua lization is suggested for further evaluation. 2. Postsurgical changes related to the stomach likely due to prior gastric sleeve procedure. 3. Findings no acute findings are seen in the abdomen or pelvis. 4.Small fat-containing umbilical hernia.
[2019-06-26] MEDS ORDERED: Lorazepam 2 MG/ML VIAL ONE (19:10)
[2019-06-26] MEDS ORDERED: Dextrose 50% Abboject 50 ML SYRINGE ONE (20:08)
[2019-06-26] MEDS ORDERED: Fentanyl 100 MCG/2 ML VIAL ONE (20:16)
[2019-06-26] MEDS ORDERED: Promethazine HCl 25 MG/ML VIAL ONE (20:16)
--- NOTE | 2019-06-26 21:37 | ULT ---
Exam: Pelvic ultrasound HISTORY: Pelvic pain. History of hysterectomy. Evaluate for ovarian torsion. COMPARISON: None TECHNIQUE: Multiple grayscale and color Doppler images were obtained in a transabdominal and transvag inal pelvic ultrasound. FINDINGS: CERVIX: Not visualized. UTERUS: Not visualized. The patient has history of prior hysterectomy. RIGHT OVARY: Not visualized. LEFT OVARY:Not visualized. A small amount of free fluid is present in the pelvis. IMPRESSION: 1. Nonvisualization of the bilateral ovaries. 2. Small amount of free fluid in the pelvis. 3. Hysterectomy.
[2019-06-26] MEDS ORDERED: HYDROcodone/Acetaminophen 10/325 mg Tablet ONE (23:02)
[2019-06-28 21:01] LABS: Chlamydia by PCR Not Detected (NotDetected); GC by PCR Not Detected (NotDetected)
== END 2019-06-27 00:10 | disposition home or self-care (01) ==
LOC: ERS 16:55
DX: R10.31 Right lower quadrant pain (principal); R10.32 Left lower quadrant pain; R10.811 Right upper quadrant abdominal tenderness; R10.813 Right lower quadrant abdominal tenderness; E66.9 Obesity, unspecified; M19.90 Unspecified osteoarthritis, unspecified site; F31.9 Bipolar disorder, unspecified; F43.10 Post-traumatic stress disorder, unspecified; Z79.899 Other long term (current) drug therapy
CPT/HCPCS: 36415; 74177; 76856; 80053; 81003; 81025; 85025; 87480; 87491; 87510; 87591; 87660; 96361; 96374; 96375; J2060; J2270; J2405; J2550; J3010; Q9966

== ENCOUNTER 2019-07-20 10:34 | Outpatient (CLI) | payer OTHER ==
--- NOTE | 2019-07-20 11:04 | ULT ---
Exam: Right upper quadrant ultrasound: HISTORY: Right upper quadrant abdominal pain for 2 months COMPARISON: CT abdomen on 06/26/2019 FINDINGS: Liver: Within normal limits Gallbladder: Multiple echogenic foci with posterior shadowing is seen in the gallbladder lumen relate d to cholelithiasis. There is no gallbladder wall thickening or pericholecystic fluid. Common bile duct: The common duct is dilated measuring 8 mm in diameter. Pancreas: Limited visualized portions of the pancreas demonstrate a normal sonographic appearance. Right kidney: Right kidney demonstrates a normal sonographic appearance. The right kidney measures 1 1.9 cm in length. IVC: The visualized IVC demonstrates a normal sonographic appearance. IMPRESSION: 1. Cholelithiasis. 2. Dilatation of the extrahepatic common duct of uncertain etiology based on this exam. No intrahepat ic biliary ductal dilatation is appreciated. ERCP versus MRCP may be helpful for further evaluation.
--- NOTE | 2019-07-21 13:06 | HP ---
HISTORY OF PRESENT ILLNESS: Tena Barry, 39-year-old female, 1 week status post July 16, 2018, laparoscopic sleeve gastrectomy. Total weight loss 118 pounds and counting near 70% excess body weight loss, starting weight 294 pounds, 53 BMI, currently 176 pounds, 32 BMI, has developed epigastric discomfort suggesting biliary symptoms. Referred for gallbladder ultrasound revealing gallstones with dilatation of extrahepatic bile duct, otherwise normal ultrasound. Plan is for laparoscopic video cholecystectomy, cholangiogram. She understands risks of infection, bleeding, visceral and biliary injury, open procedure and consents. Laboratories on 06/26/2019 were normal as well as a CAT scan. MEDICATIONS: Alprazolam 0.5 mg as needed, Zofran as needed, vitamins. PAST MEDICAL HISTORY: Depression; anxiety; elevated cholesterol; obesity resolved with bariatric surgery; lower back pain, improved after bariatric surgery; scoliosis. PAST SURGICAL HISTORY: in 2008, left clubfoot repair, hysterectomy, partial gastric sleeve, and laparoscopic gastrectomy, 07/16/2018. REVIEW OF SYSTEMS: Noncontributory. FAMILY HISTORY: Noncontributory. ALLERGIES: CECLOR PHYSICAL EXAMINATION: VITAL SIGNS: Weight 176 pounds, blood pressure 108/53, heart rate 66, temperature 98.4 degrees. HEAD, EYES, EARS, NOSE, AND THROAT: Unremarkable. LUNGS: Clear to auscultation. CARDIAC: Regular rate and rhythm. No murmur or gallop. ABDOMEN: Soft. Laparoscopic wounds well healed. Mild tenderness, right upper quadrant. EXTREMITIES: Unremarkable. ASSESSMENT: 1. Status post bariatric surgery, sleeve gastrectomy just over a year ago, successful weight loss 118 pounds postoperatively, 70% excess body weight loss. 2. Symptomatic gallstones. PLAN: Laparoscopic video cholecystectomy. Labs and CAT scan normal last week. Risks and benefits discussed. Questions answered. Job ID: [id number]
== END 2019-07-20 10:35 | disposition home or self-care (01) ==
LOC: SCSULT 10:34
PROVIDERS: ATTEND Specialist
DX: R10.11 Right upper quadrant pain (principal); K80.20 Calculus of gallbladder without cholecystitis without obstruction
CPT/HCPCS: 76705

== ENCOUNTER 2019-07-31 09:37 | Day surgery (SDC) | payer OTHER ==
[2019-07-30 08:20] VITALS: BMI 31.6
[2019-07-31] MEDS ORDERED: Ketorolac Tromethamine 30 MG/ML VIAL ONE (09:54)
[2019-07-31] MEDS ORDERED: Bupivacaine/Epinephrine 0.25% 30 ML VIAL ONE (12:12)
[2019-07-31] MEDS ORDERED: Iothalamate Meglumine 60% 50 ML VIAL FS ONE (12:12)
[2019-07-31] MEDS ORDERED: Fentanyl 100 MCG/2 ML VIAL ONE ×3 (12:17→14:27)
[2019-07-31] MEDS ORDERED: Midazolam HCl 2 mg/2 ml Vial ONE (12:27)
[2019-07-31] MEDS ORDERED: Ioversol 68 % 50 ML VIAL ONE (13:07)
--- NOTE | 2019-07-31 14:04 | RAD ---
Intraoperative cholangiogram: 07/31/2019 COMPARISON: None HISTORY: Cholecystectomy FINDINGS: 2 images are provided. Cholecystectomy clips are present. There is contrast media within th e common bile duct and duodenum on the first image. No filling defects are seen within the common bile duct on the first image. The second image demonstrates probable air bubbles in the gallbladder f nate region, as there are rounded lucencies adjacent to and overlapping the expected location of the cystic duct and proper hepatic duct. Both images demonstrate small volume contrast media outside the biliary tree within the region of the gallbladder fossa. IMPRESSION: Intraoperative cholangiogram as detailed above.
[2019-07-31] MEDS ORDERED: HYDROcodone/Acetaminophen 5/325 mg Tablet ONE (15:12)
[2019-07-31] MEDS ORDERED: Rocuronium Bromide 10 MG/ML (10ML VIAL) ONE (15:37)
[2019-07-31] MEDS ORDERED: PROPOFOL 200 MG/20 ML VIAL ONE (15:37)
[2019-07-31] MEDS ORDERED: Ondansetron PF 4 MG/2 ML Vial ONE (15:37)
[2019-07-31] MEDS ORDERED: Glycopyrrolate 0.2 MG/ML 5 ML SYRINGE ONE (15:37)
[2019-07-31] MEDS ORDERED: Dexamethasone 20 MG/5 ML VIAL ONE (15:37)
[2019-07-31] MEDS ORDERED: Lidocaine 1% PF 5 ML VIAL ONE (15:37)
--- NOTE | 2019-07-31 20:19 | OP ---
DATE OF PROCEDURE: 07/31/2019 PREOPERATIVE DIAGNOSES: Bariatric surgery status, sleeve gastrectomy, 130-pound weight loss, gallstones, and cholecystitis. POSTOPERATIVE DIAGNOSES: Bariatric surgery status, sleeve gastrectomy, 130-pound weight loss, gallstones, and cholecystitis. PROCEDURES PERFORMED: Laparoscopic video cholecystectomy, negative intraoperative cholangiogram (slightly dilated bile duct with normal liver function tests), fluoroscopy used. ANESTHESIA: General, local of 0.5% Marcaine with epinephrine 30 mL. DESCRIPTION OF PROCEDURE: The patient was taken to the operating room, where under general anesthesia, abdomen was prepared with ChloraPrep and draped in routine fashion. Local anesthetic was infiltrated in the skin and subcutaneous tissue at each port site. Infraumbilical incision was made. Pneumoperitoneum to 15 mmHg was obtained with a Veress needle, replaced with a 5 port, and laparoscope was inserted. Right subxiphoid incision was made, and 11 port was placed. Right subcostal incision was made at midclavicular entrance line, and 5 port was placed. Fundus of the gallbladder was grasped at the cephalad. Omental adhesions were taken down identifying the infundibulum and grasping and reflecting laterally. Cystic artery and duct were dissected free. Critical view was obtained. Cystic artery was doubly clipped proximally. Cystic duct was singly clipped on the gallbladder side. Opening was made in the cystic duct. Cholangiocatheter was inserted, and cholangiogram was obtained using fluoroscopy revealing free flow of contrast to the duodenum without filling defects in the common hepatic, common bile, and left and right hepatic ducts. Cholangiocatheter was removed. Cystic duct stump was doubly clipped. Cystic artery and duct were divided. Gallbladder was dissected free from liver bed obtaining good hemostasis prior to division of final peritoneal attachments. Gallbladder and contents were removed and submitted to Pathology. Good hemostasis was then ensured. The liver appeared normal. Irrigant and pneumoperitoneum were evacuated. All instruments were removed, and all skin incisions were approximated with interrupted subdermal 4-0 Monocryl, and [place] glue was applied. Job ID: [id number]
== END 2019-07-31 15:35 | disposition home or self-care (01) ==
LOC: SDC 09:37
PROVIDERS: ATTEND Specialist
PROC: BF131ZZ Fluoroscopy of Gallbladder and Bile Ducts using Low Osmolar Contrast (ICD-10-PCS; principal; 2019-07-31)
PROC: 0FT44ZZ Resection of Gallbladder, Percutaneous Endoscopic Approach (ICD-10-PCS; principal; 2019-07-31)
DX: K80.10 Calculus of gallbladder with chronic cholecystitis without obstruction (principal); R63.4 Abnormal weight loss; Z68.31 Body mass index [BMI] 31.0-31.9, adult; Z88.1 Allergy status to other antibiotic agents; Z91.013 Allergy to seafood; Z98.84 Bariatric surgery status
CPT/HCPCS: 47532; 88304; J0131; J0690; J1100; J1610; J1885; J2001; J2250; J2405; J2704; J3010; Q9967

== ENCOUNTER 2019-12-26 13:38 | Emergency (ER) | payer OTHER ==
[2019-12-26] MEDS ORDERED: Ketorolac Tromethamine 30 MG/ML VIAL ONE (15:05)
[2019-12-26] MEDS ORDERED: Bupivacaine 0.5% 10 ML VIAL ONE (15:05)
[2019-12-26] MEDS ORDERED: Acetaminophen 500 MG TAB ONE (15:39)
== END 2019-12-26 15:44 | disposition home or self-care (01) ==
LOC: ERS 13:38
DX: R51 Headache (principal); M19.90 Unspecified osteoarthritis, unspecified site; M79.7 Fibromyalgia; E66.9 Obesity, unspecified; F41.9 Anxiety disorder, unspecified; F31.9 Bipolar disorder, unspecified; F43.10 Post-traumatic stress disorder, unspecified; F60.3 Borderline personality disorder; Z87.891 Personal history of nicotine dependence; Z79.899 Other long term (current) drug therapy
CPT/HCPCS: 96372; 99283; J1885; J3490

== ENCOUNTER 2020-11-19 20:33 | Emergency (ER) | payer OTHER ==
[2020-11-20 06:20] LABS: SARS-CoV-2 PCR by NAA Not Detected (NotDetected)
== END 2020-11-19 22:07 | disposition home or self-care (01) ==
LOC: ERS 20:33
DX: R11.2 Nausea with vomiting, unspecified (principal); R19.7 Diarrhea, unspecified; R43.9 Unspecified disturbances of smell and taste; R51.9 Headache, unspecified; Z20.822 Contact with and (suspected) exposure to COVID-19; Z79.899 Other long term (current) drug therapy; M19.90 Unspecified osteoarthritis, unspecified site
CPT/HCPCS: 87635; 99284; U0003; U0005

== ENCOUNTER 2021-07-03 08:30 | Emergency (ER) | payer OTHER ==
[2021-07-03] MEDS ORDERED: Ketorolac Tromethamine 30 MG/ML VIAL ONE (11:06)
== END 2021-07-03 11:42 | disposition home or self-care (01) ==
LOC: ERS 08:30
DX: S16.1XXA Strain of muscle, fascia and tendon at neck level, initial encounter (principal); G44.209 Tension-type headache, unspecified, not intractable; F17.210 Nicotine dependence, cigarettes, uncomplicated; Z79.899 Other long term (current) drug therapy; X58.XXXA Exposure to other specified factors, initial encounter
CPT/HCPCS: 96372; 99283; J1885

== ENCOUNTER 2021-07-17 10:36 | Emergency (ER) | payer OTHER ==
[2021-07-17 12:17] LABS: #Basophils 0.1 thou/uL (0.0-0.2); #Eosinphils 0.6 thou/uL (0.0-0.7); #Lymphocytes 2.7 thou/uL (1.20-3.40); #Monocytes 0.4 thou/uL (0.11-0.59); #Neutrophils 5.2 thou/uL (1.40-6.50); %Basophils 1.2 % (0.0-1.0); %Eosinophils 6.8 % (0.0-10.0); %Lymphocytes 29.9 % (21.0-51.0); %Monocytes 4.4 % (0.0-10.0); %Neutrophils 57.8 % (42.0-75.0); Mean Corpuscular HGB CONC 33.3 g/dL (32.0-36.0); Mean Corpuscular Hemoglobin 33.1 pg (27.0-31.0); Mean Corpuscular Volume 99.3 fL (78.0-98.0); Mean Platelet Volume 9.1 fL (7.4-10.4); Platelet Count 227 thou/uL (130-400); RBC Distribution Width 11.4 % (11.5-14.5); Red Blood Cell (RBC) Count 4.24 mill/uL (4.20-5.40)
[2021-07-17] MEDS ORDERED: Iopamidol-370 76% 500 ML 1 ML ONE (12:17)
[2021-07-17] MEDS ORDERED: Metoclopramide HCl 10 MG/2 ML VIAL ONE (12:28)
[2021-07-17] MEDS ORDERED: diphenhydrAMINE 50 MG/ML VIAL ONE (12:28)
[2021-07-17 12:32] LABS: BHCG - Serum Negative (NEGATIVE); Pregs Control Background? CLEAR/WHITE (CLR/WHITE); Pregs Control Bar Appear? YES (CONTROL BAR)
[2021-07-17 12:48] LABS: ALT (SGPT) 16 U/L (8-55); AST (SGOT) 18 U/L (5-34); Albumin 4.2 g/dL (3.5-5.0); Alkaline Phosphatase 63 U/L (40-110); Anion Gap 12 mmol/L (10-20); BUN (Urea Nitrogen) 6 mg/dL (7.0-18.7); Bilirubin, Total 0.3 mg/dL (0.2-1.2); Calc. Creatinine Clearance 0 mL/min (70-130); Calcium 9.7 mg/dL (7.8-10.44); Carbon Dioxide 28 mmol/L (22-29); Chloride 105 mmol/L (98-107); Globulin 2.4 g/dL (2.4-3.5); Glucose 90 mg/dL (70-105); Magnesium 2.2 mg/dL (1.6-2.6); Potassium 4.6 mmol/L (3.5-5.1); Protein, Total 6.6 g/dL (6.0-8.3); Sodium 140 mmol/L (136-145)
== END 2021-07-17 15:20 | disposition home or self-care (01) ==
LOC: ERS 10:36
DX: F07.81 Postconcussional syndrome (principal); R51.9 Headache, unspecified; M54.2 Cervicalgia; M41.9 Scoliosis, unspecified; M19.90 Unspecified osteoarthritis, unspecified site; F17.210 Nicotine dependence, cigarettes, uncomplicated; Z79.1 Long term (current) use of non-steroidal anti-inflammatories (NSAID); Z79.899 Other long term (current) drug therapy
CPT/HCPCS: 36415; 70496; 70498; 80053; 83735; 84484; 84703; 85025; 93005; 96365; 96366; 96375; J1200; J2765; Q9967

== ENCOUNTER 2022-07-10 05:30 | Emergency (ER) | payer OTHER ==
[2022-07-10] MEDS ORDERED: Aspirin Chewable 81 MG TAB ONE (05:47)
[2022-07-10 06:43] LABS: #Basophils 0.1 thou/uL (0.0-0.2); #Eosinphils 0.6 thou/uL (0.0-0.7); #Lymphocytes 2.7 thou/uL (1.20-3.40); #Monocytes 0.5 thou/uL (0.11-0.59); #Neutrophils 4.4 thou/uL (1.40-6.50); %Eosinophils 7.8 % (0.0-10.0); %Lymphocytes 32.5 % (21.0-51.0); %Monocytes 5.8 % (0.0-10.0); %Neutrophils 52.9 % (42.0-75.0); Hemoglobin 13.5 g/dL (12.0-16.0); Mean Corpuscular HGB CONC 33.8 g/dL (32.0-36.0); Mean Corpuscular Hemoglobin 34.7 pg (27.0-31.0); Mean Platelet Volume 8.8 fL (7.4-10.4); Platelet Count 225 thou/uL (130-400); RBC Distribution Width 11.6 % (11.5-14.5); White Blood Cell (WBC) Count 8.2 thou/uL (4.8-10.8)
[2022-07-10 07:04] LABS: ALT (SGPT) 35 U/L (8-55); AST (SGOT) 25 U/L (5-34); Alkaline Phosphatase 63 U/L (40-110); Anion Gap 15 mmol/L (10-20); BUN (Urea Nitrogen) 11 mg/dL (7.0-18.7); Bilirubin, Total 0.3 mg/dL (0.2-1.2); Calc. Creatinine Clearance 0 mL/min (70-130); Calcium 8.8 mg/dL (7.8-10.44); Carbon Dioxide 23 mmol/L (22-29); Chloride 105 mmol/L (98-107); Estimated GFR 105; Globulin 2.7 g/dL (2.4-3.5); Glucose 103 mg/dL (70-105); Potassium 4.1 mmol/L (3.5-5.1); Protein, Total 6.7 g/dL (6.0-8.3); Sodium 139 mmol/L (136-145)
[2022-07-10] MEDS ORDERED: Acetaminophen 500 MG TAB ONE (13:04)
== END 2022-07-10 14:44 | disposition home or self-care (01) ==
LOC: ERS 05:30
DX: R07.9 Chest pain, unspecified (principal); R60.0 Localized edema; F17.210 Nicotine dependence, cigarettes, uncomplicated; Z79.899 Other long term (current) drug therapy
CPT/HCPCS: 36415; 71045; 80053; 84484; 85025; 85379; 93005

== ENCOUNTER 2022-08-23 08:09 | Emergency (ER) | payer OTHER ==
[2022-08-23 08:57] LABS: Bacteria/HPF 2+ HPF (None Seen); Bilirubin Negative (Negative); Blood, Urine 3+ (Negative); Clarity Extra Turbid (Clear); Glucose, Urine (Dipstick) Normal (Negative); Ketone, Urine Negative (Negative); Leukocyte 500 Leu/uL (Negative); Nitrite Negative (Negative); Protein, Urine (Dipstick) 50 mg/dL (Neg-Trace); RBC/HPF Greater than 50 HPF (0-3); Specific Gravity, Urine 1.012 (1.002-1.036); Transitional Epithelial 0-3 HPF (None Seen); Urobilinogen Normal mg/dL (Less than 2); WBC/HPF Greater than 50 HPF (0-3); pH, Urine 5.5 (5.0-9.0)
[2022-08-23 10:17] LABS: Pregnancy Test - Urine (BHCG) Negative (Negative); Pregu Control Background? CLEAR/WHITE (CLR/WHITE); Pregu Control Bar Appear? YES (CONTROL BAR); Specific Gravity 1.012 (1.002-1.036)
== END 2022-08-23 10:09 | disposition home or self-care (01) ==
LOC: ERS 08:09
DX: N10 Acute pyelonephritis (principal); Z79.899 Other long term (current) drug therapy; Z87.891 Personal history of nicotine dependence
CPT/HCPCS: 81003; 81015; 81025; 99284

== ENCOUNTER 2022-09-07 10:47 | Emergency (ER) | payer OTHER, SELFPAY ==
[2022-09-07 11:23] LABS: #Basophils 0.1 thou/uL (0.0-0.2); #Eosinphils 0.3 thou/uL (0.0-0.7); #Lymphocytes 1.8 thou/uL (1.20-3.40); #Monocytes 0.3 thou/uL (0.11-0.59); #Neutrophils 4.7 thou/uL (1.40-6.50); %Basophils 1.2 % (0.0-1.0); %Eosinophils 3.7 % (0.0-10.0); %Lymphocytes 24.8 % (21.0-51.0); %Monocytes 4.8 % (0.0-10.0); %Neutrophils 65.6 % (42.0-75.0); Hemoglobin 12.8 g/dL (12.0-16.0); Mean Corpuscular Hemoglobin 34.3 pg (27.0-31.0); Mean Platelet Volume 8.8 fL (7.4-10.4); Platelet Count 233 thou/uL (130-400); RBC Distribution Width 11.6 % (11.5-14.5); Red Blood Cell (RBC) Count 3.74 mill/uL (4.20-5.40); White Blood Cell (WBC) Count 7.1 thou/uL (4.8-10.8)
[2022-09-07 11:30] LABS: Bilirubin Negative (Negative); Blood, Urine Negative (Negative); Clarity Clear (Clear); Glucose, Urine (Dipstick) Normal (Negative); Ketone, Urine Negative (Negative); Leukocyte Negative Leu/uL (Negative); Nitrite Negative (Negative); Protein, Urine (Dipstick) Negative (Neg-Trace); Specific Gravity, Urine 1.008 (1.002-1.036); Urobilinogen Normal mg/dL (Less than 2)
[2022-09-07 11:36] LABS: Pregnancy Test - Urine (BHCG) Negative (Negative); Pregu Control Background? CLEAR/WHITE (CLR/WHITE); Pregu Control Bar Appear? YES (CONTROL BAR); Specific Gravity 1.008 (1.002-1.036)
[2022-09-07 11:36] LABS: ALT (SGPT) 23 U/L (8-55); AST (SGOT) 20 U/L (5-34); Alkaline Phosphatase 61 U/L (40-110); Anion Gap 13 mmol/L (10-20); BUN (Urea Nitrogen) 8 mg/dL (7.0-18.7); Bilirubin, Total 0.3 mg/dL (0.2-1.2); Calc. Creatinine Clearance 0 mL/min (70-130); Calcium 9.4 mg/dL (7.8-10.44); Carbon Dioxide 25 mmol/L (22-29); Chloride 104 mmol/L (98-107); Estimated GFR 112; Globulin 2.4 g/dL (2.4-3.5); Glucose 89 mg/dL (70-105); Potassium 4.6 mmol/L (3.5-5.1); Protein, Total 6.4 g/dL (6.0-8.3); Sodium 137 mmol/L (136-145)
== END 2022-09-07 12:24 | disposition home or self-care (01) ==
LOC: ERS 10:47
DX: R30.0 Dysuria (principal); R11.0 Nausea; Z87.891 Personal history of nicotine dependence
CPT/HCPCS: 36415; 80053; 81003; 81025; 85025; 87086; 94760

== ENCOUNTER 2022-10-04 08:00 | Emergency (ER) | payer SELFPAY ==
[2022-10-04 08:38] LABS: #Basophils 0.1 thou/uL (0.0-0.2); #Eosinphils 0.1 thou/uL (0.0-0.7); #Lymphocytes 1.6 thou/uL (1.20-3.40); #Monocytes 0.3 thou/uL (0.11-0.59); #Neutrophils 3.3 thou/uL (1.40-6.50); %Basophils 1.3 % (0.0-1.0); %Eosinophils 1.6 % (0.0-10.0); %Lymphocytes 29.8 % (21.0-51.0); %Neutrophils 61.3 % (42.0-75.0); Hemoglobin 14.1 g/dL (12.0-16.0); Mean Corpuscular HGB CONC 33.5 g/dL (32.0-36.0); Mean Corpuscular Hemoglobin 33.4 pg (27.0-31.0); Mean Corpuscular Volume 99.7 fl (78.0-98.0); Mean Platelet Volume 8.7 fL (7.4-10.4); Platelet Count 220 10x3/uL (130-400); RBC Distribution Width 11.5 % (11.5-14.5); Red Blood Cell (RBC) Count 4.23 mill/uL (4.20-5.40); White Blood Cell (WBC) Count 5.5 10x3/uL (4.8-10.8)
[2022-10-04 08:49] LABS: BHCG - Serum Negative (NEGATIVE); Pregs Control Background? CLEAR/WHITE (CLR/WHITE); Pregs Control Bar Appear? YES (CONTROL BAR)
[2022-10-04 08:58] LABS: ALT (SGPT) 34 U/L (8-55); AST (SGOT) 21 U/L (5-34); Albumin 4.3 g/dL (3.5-5.0); Alkaline Phosphatase 64 U/L (40-110); Anion Gap 11 mmol/L (10-20); BUN (Urea Nitrogen) 9 mg/dL (7.0-18.7); Bilirubin, Total 0.4 mg/dL (0.2-1.2); Calc. Creatinine Clearance 0 mL/min (70-130); Calcium 9.4 mg/dL (7.8-10.44); Carbon Dioxide 26 mmol/L (22-29); Chloride 108 mmol/L (98-107); Estimated GFR 114; Globulin 2.7 g/dL (2.4-3.5); Glucose 92 mg/dL (70-105); Lipase 33 U/L (8-78); Potassium 3.5 mmol/L (3.5-5.1); Sodium 141 mmol/L (136-145)
[2022-10-04] MEDS ORDERED: Prochlorperazine 10 MG/2 ML VIAL ONE (09:11)
[2022-10-04] MEDS ORDERED: Ketorolac Tromethamine 30 MG/ML VIAL ONE (09:11)
[2022-10-04] MEDS ORDERED: diphenhydrAMINE 12.5 MG/5 ML UDCUP ONE (09:11)
[2022-10-04] MEDS ORDERED: diphenhydrAMINE 50 MG/ML VIAL ONE (09:13)
== END 2022-10-04 11:35 | disposition home or self-care (01) ==
LOC: ERS 08:00
DX: G43.909 Migraine, unspecified, not intractable, without status migrainosus (principal)
CPT/HCPCS: 80053; 83690; 84703; 85025; 94760; 96361; 96374; 96375; J0780; J1200; J1885; Q0163

== ENCOUNTER 2025-08-01 18:54 | Emergency (ER) | payer SELFPAY | END 2025-08-01 22:00 | disposition home or self-care (01) | LOC: ERS 18:54 | DX: J32.9 Chronic sinusitis, unspecified (principal); J34.89 Other specified disorders of nose and nasal sinuses; R59.0 Localized enlarged lymph nodes | CPT/HCPCS: 99283 ==